=== PATIENT | female | born 1955 | race African-American/Black ===

== ENCOUNTER 2020-01-14 01:44 | Emergency (ER) | payer MEDICAID ==
[~2020-01-14] VITALS: Ht 154.9 cm; Wt 66.0 kg
[2020-01-14 01:46] VITALS: BP 155/79
[2020-01-14] MEDS ORDERED: ACETAMINOPHEN 325MG TABLET PO ONE (02:15)
[2020-01-14] MEDS ORDERED: BACITRACIN ZINC OINT UDPKT TOP ONE (02:15)
[2020-01-14] MEDS ORDERED: LIDOCAINE 1%/EPI 1:100,000 10 ML VIAL IJ ONE (02:15)
== END 2020-01-14 02:53 | disposition home or self-care (01) ==
LOC: ER 01:46
DX: L02.212 Cutaneous abscess of back [any part, except buttock and flank] (principal); Z98.890 Other specified postprocedural states; F12.10 Cannabis abuse, uncomplicated
CPT/HCPCS: 10060; 99283; J3490